=== PATIENT | male | born 1990 | race Caucasian/White ===

== ENCOUNTER 2018-04-02 08:56 | Emergency (ER) | payer SELFPAY ==
[~2018-04-02] VITALS: Ht 177.8 cm; Wt 95.3 kg
[2018-04-02 09:09] VITALS: BP 120/80
--- NOTE | 2018-04-02 09:25 | Emergency Room Report ---
History of Present Illness General Chief Complaint: Upper Extremity Injury Source: Patient Present Illness HPI Patient reports that while playing soccer yesterday he landed on the right shoulder Since then he has had increased pain Especially with movement upward pain is just at the lateral clavicle In the AC joint location Denies any loss of consciousness Denies any elbow pain and eyes any neck pain Pain is 5 out of 10 worse with touch or movement Allergies: Coded Allergies: PENICILLINS (Verified Allergy, Unknown, 04/02/18) Patient History Past Medical History: see triage record Pertinent Family History: none Reviewed Nursing Documentation: PMH: Agreed; PSxH: Agreed Nursing Documentation-PMH Past Medical History: No Stated History Review of Systems All Other Systems: negative except mentioned in HPI Physical Exam Vital Signs Date Time Temp Pulse Resp B/P (MAP) Pulse Ox O2 Delivery O2 Flow Rate FiO2 04/02/18 08:59 98.0 78 16 120/80 94 Room Air 98.1 Sp02 EP Interpretation: reviewed, normal General Appearance: well appearing, no apparent distress Head: normocephalic, atraumatic Eyes: bilateral eye PERRL, bilateral eye EOMI ENT: normal pharynx, no angioedema Neck: supple Respiratory: chest non-tender, lungs clear Cardiovascular #1: regular rate, rhythm Gastrointestinal: non tender, soft Musculoskeletal: other - No obvious ecchymosis or swelling, tender on palpation of the AC joint Neurologic: alert, oriented x3, responsive Skin: normal color, no rash Lymphatic: no adenopathy Medical Decision Making Diagnostic Impression: Primary Impression: Shoulder pain Additional Impression: Contusion ER Course Given the patient's history of trauma Multiple differentials considered including but not limited to, shoulder fracture, clavicle fracture AC separation Patient's imaging study does not reveal any acute pathology patient was provided with a shoulder sling (this is not a splint) And is stable for initial conservative outpatient trial Other X-Ray Diagnostic Results Other X-Ray Diagnostic Results : X-Ray ordered: Right shoulder # of Views/Limited Vs Complete: 3 View Indication: Pain EP Interpretation: Yes Interpretation: no dislocation, no soft tissue swelling, no fractures Impression: No acute disease Electronically Signed by: Bridgett Kruger DO Last Vital Signs Date Time Temp Pulse Resp B/P (MAP) Pulse Ox O2 Delivery O2 Flow Rate FiO2 04/02/18 09:09 98.1 72 16 120/80 94 Room Air 98.1 Status: improved Disposition: HOME, SELF-CARE Condition: Improved Additional Instructions: Patient is provided with the discharge instructions notified to follow up with primary doctor in the next 2-3 days otherwise return to the er with any worsening symptoms. Please note that this report is being documented using [employer] technology. This can lead to erroneous entry secondary to incorrect interpretation by the dictating instrument. Bridgett Kruger DO April 02, 2018 09:25
[2018-04-02] MEDS ORDERED: IBUPROFEN600 MG ORAL (10:08)
[2018-04-02 10:09] VITALS: BP 120/80
--- NOTE | 2018-04-02 10:29 | Diagnostic Imaging Report ---
Indication: Pain Findings: 3 views of the right shoulder were obtained. No acute fractures, malalignment, erosions or periostitis are identified. Soft tissues are unremarkable. Impression: Negative for acute injury
== END 2018-04-02 10:11 | disposition home or self-care (01) ==
LOC: EMR 10:02
DX: S40.011A Contusion of right shoulder, initial encounter (principal); W19.XXXA Unspecified fall, initial encounter; Y93.66 Activity, soccer; Y92.9 Unspecified place or not applicable; Z88.0 Allergy status to penicillin
CPT/HCPCS: 99283